=== PATIENT | female | born 2000 | race Caucasian/White ===

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

== ENCOUNTER 2021-01-23 14:53 | Emergency (ER) | payer OTHER ==
[~2021-01-23 14:53] MED LIST: IBUPROFEN800 MG PO; MACROBID 100 M100 MG PO; MACRODANTIN100 MG PO; PYRIDIUM200 MG PO; ZOFRAN 4 MG TAB4 MG PO
[2021-01-23 16:38] LABS: HEMOGLOBIN 13.2 gm/dl (12.3-15.3); RED BLOOD COUNT 4.52 M/UL (4.00-5.10); WHITE BLOOD COUNT 10.4 K/UL (4.5-11.0)
[2021-01-23 17:09] LABS: BUN/CREATININE RATIO 18 (0-10)
== END 2021-01-23 17:45 | disposition home or self-care (01) ==
LOC: ER1 14:53
PROVIDERS: Family Medicine
DX: R42 Dizziness and giddiness (principal); R03.0 Elevated blood-pressure reading, without diagnosis of hypertension; F17.200 Nicotine dependence, unspecified, uncomplicated
CPT/HCPCS: 80053; 82550; 82553; 83874; 84439; 84443; 84484; 85025; 93005; 99284

== ENCOUNTER → 2021-02-01 | Outpatient (CLI) | payer OTHER | LOC: EXRD 15:24 | DX: E04.9 Nontoxic goiter, unspecified (principal) | CPT/HCPCS: 76536 ==

== ENCOUNTER 2021-04-18 21:19 | Emergency (ER) | payer OTHER | END 2021-04-18 22:12 | disposition home or self-care (01) | LOC: ER1 21:19 | DX: I10 Essential (primary) hypertension (principal); R42 Dizziness and giddiness; F17.200 Nicotine dependence, unspecified, uncomplicated; Z79.899 Other long term (current) drug therapy | CPT/HCPCS: 99283 ==

== ENCOUNTER 2021-08-17 22:52 | Emergency (ER) | payer OTHER ==
[2021-08-18] MEDS ORDERED: IBUPROFEN600 MG PO (01:03)
== END 2021-08-18 01:10 | disposition home or self-care (01) ==
LOC: ER1 22:52
DX: S01.81XA Laceration without foreign body of other part of head, initial encounter (principal); S39.012A Strain of muscle, fascia and tendon of lower back, initial encounter; I10 Essential (primary) hypertension; F17.200 Nicotine dependence, unspecified, uncomplicated; Z79.899 Other long term (current) drug therapy; Z23 Encounter for immunization; W01.0XXA Fall on same level from slipping, tripping and stumbling without subsequent striking against object, initial encounter; Y92.009 Unspecified place in unspecified non-institutional (private) residence as the place of occurrence of the external cause
CPT/HCPCS: 12013; 70450; 72125; 90471; 90715; 99283

== ENCOUNTER 2021-11-02 09:04 | Emergency (ER) | payer BC, OTHER ==
[~2021-11-02 09:04] MED LIST changes: +IBUPROFEN600 MG PO
[2021-11-02] MEDS ORDERED: ZOFRAN ODT 4 MG4 MG PO (11:22)
== END 2021-11-02 11:28 | disposition home or self-care (01) ==
LOC: ER1 09:04
DX: U07.1 COVID-19 (principal); I10 Essential (primary) hypertension; F17.200 Nicotine dependence, unspecified, uncomplicated
CPT/HCPCS: 81001; 84703; 99283; U0002

== ENCOUNTER 2022-03-11 14:59 | Emergency (ER) | payer BC, OTHER ==
[~2022-03-11 14:59] MED LIST changes: +ZOFRAN ODT 4 MG4 MG PO
[2022-03-11 16:24] LABS: HEMOGLOBIN 14.1 gm/dl (12.3-15.3); RED BLOOD COUNT 4.8 M/UL (4.00-5.10); WHITE BLOOD COUNT 12.2 K/UL (4.5-11.0)
[2022-03-11 16:39] LABS: BUN/CREATININE RATIO 16 (0-10)
== END 2022-03-11 18:53 | disposition home or self-care (01) ==
LOC: ER1 14:59
DX: I10 Essential (primary) hypertension (principal); F17.200 Nicotine dependence, unspecified, uncomplicated
CPT/HCPCS: 80053; 82550; 82553; 84484; 85025; 93005; 99283

== ENCOUNTER 2022-03-25 14:02 | Emergency (ER) | payer OTHER ==
[2022-03-25 14:44] LABS: HEMOGLOBIN 14.1 gm/dl (12.3-15.3); RED BLOOD COUNT 4.79 M/UL (4.00-5.10); WHITE BLOOD COUNT 11.6 K/UL (4.5-11.0)
[2022-03-25 15:10] LABS: BUN/CREATININE RATIO 20 (0-10)
== END 2022-03-25 17:50 | disposition home or self-care (01) ==
LOC: ER1 14:02
PROVIDERS: Emergency Medicine
DX: R07.9 Chest pain, unspecified (principal); F17.200 Nicotine dependence, unspecified, uncomplicated
CPT/HCPCS: 71045; 80053; 82550; 82553; 84484; 84703; 85025; 93005; 99285

== ENCOUNTER → 2022-04-03 | Outpatient (CLI) | payer OTHER | LOC: ECHO 10:27 | DX: R01.1 Cardiac murmur, unspecified (principal); I08.1 Rheumatic disorders of both mitral and tricuspid valves | CPT/HCPCS: ECHO; 93306 ==